=== PATIENT | female | born 1965 | race Caucasian/White ===

== ENCOUNTER → 2021-04-04 08:51 | Outpatient (CLI) | payer BC, OTHER, SELFPAY ==
--- NOTE | 2021-04-04 | DI.CT.S_ITS ---
PROCEDURE: CT ABDOMEN W CON INDICATIONS: LEFT UPPER QUADRANT PAIN TECHNIQUE: After the administration of intravenous and p.o. contrast, axial sections acquired from the diaphragm to the iliac crests. Coronal and sagittal reformats were performed. For radiation dose reduction, the following was used: automated exposure control, adjustment of mA and/or kV according to patient size. COMPARISON: None. FINDINGS: Image quality: Excellent. Lung bases: Unremarkable. Heart: No significant findings. Liver: Tiny hypodensity too small to characterize at the liver dome. Otherwise normal attenuation. Gallbladder: Normal Biliary ducts: Nondilated. Pancreas: Normal. Spleen: Normal size and homogeneous enhancement. Adrenal Glands: No masses. Kidneys and Ureters: Minimal left caliectasis and bilateral extrarenal pelves. No intrarenal calcifications or perinephric inflammation. Visible ureters are nondilated. Stomach and Bowel: Increased quantity of solid colonic stool throughout the visible colon. Distal colon and rectum were not included on this field of view. Stomach and visible small bowel loops appear normal. Peritoneum: No generalized inflammation, free fluid, or free air. Ventral Wall: No hernia. Abdominal Nodes: No retroperitoneal or mesenteric adenopathy by size criteria. Vessels: Aorta and inferior vena cava are normal in size. Bones: Unremarkable. IMPRESSION: 1. No acute process or suspicious finding to explain left upper quadrant pain. 2. Minimal left intrarenal caliectasis without hydroureter is probably physiologic due to hydration state. 3. Increased quantity of solid stool without visualization of a distal obstructing lesion. Obstipation may contribute to left upper quadrant pain. If this may be clinically relevant, further evaluation with CT of the pelvis is recommended. Dictated by: Modesta Pryor M.D. on 04/04/2021 at 12:06 Approved by: Modesta Pryor M.D. on 04/04/2021 at 12:13
== END ==
PROVIDERS: PCP Student in an Organized Health Care Education/Training Program; Referring Provider Student in an Organized Health Care Education/Training Program; Visit Provider Student in an Organized Health Care Education/Training Program
DX: R10.12 Left upper quadrant pain (principal)
CPT/HCPCS: 74160; Q9967

== ENCOUNTER 2022-03-31 08:16 | Day surgery (SDC) | payer BC, OTHER, SELFPAY ==
[2022-03-31] MEDS: FLEETS ENEMA 1 EACH PR (08:33)
[2022-03-31 08:46] VITALS: BP 139/82; PULSE 80; RESP 16; TEMP 36.7; O2SAT 99; BMI 22.1
[2022-03-31] MEDS: LACTATED RINGERS 1,000 ML 84 ML IV (08:52)
--- NOTE | 2022-03-31 09:17 | PM.HP.1 ---
History of Present Illness History of Present Illness Date Patient Seen: 03/31/22 Time Patient Seen: 09:17 Chief complaint: SDC Narrative: Personal history of unknown histology colon polyps Patient History Family & Social History Social History: household members spouse Tobacco & Substance use: Smoking Status Never smoker alcohol intake frequency a few times a week Substance Use Type does not use Meds Home Medications and Allergies Home Medications Medication Instructions Recorded Confirmed Type amlodipine 2.5 mg tablet 2.5 mg PO DAILY 03/31/22 03/31/22 History ferrous sulfate 27 mg iron tablet 27 mg PO 2XW 03/31/22 03/31/22 History lisinopril 20 1 tab PO DAILY 03/31/22 03/31/22 History mg-hydrochlorothiazide 12.5 mg tablet Allergies Allergy/AdvReac Type Severity Reaction Status Date / Time Latex, Natural Rubber AdvReac Severe Hives Verified 03/31/22 08:46 Sulfa (Sulfonamide AdvReac Severe Joint Pain Verified 03/31/22 08:46 Antibiotics) Review of Systems Review of Systems ROS: Yes All systems reviewed with the patient and are negative except as otherwise documented Exam Vital Signs (past 8 hours): - 03/31/22 08:46 Temperature 98.0 F Pulse Rate 80 Respiratory Rate 16 Blood Pressure 139/82 Pulse Oximetry 99 Oxygen Delivery Method Room Air Oxygen Delivery Method Room Air Const General: cooperative HENMT Head: normal to inspection Eyes General: appearance normal, both eyes and all related structures Neck Neck: normal visual inspection Chest Chest: normal inspection of the chest Resp Effort & Inspection: normal respiratory effort Cardio Rate: regular rate GI Inspection: normal to inspection Skin General: no rashes or lesions noted Neuro General: patient alert and patient awake Extrem General: normal to inspection and no pedal edema Psych Appearance: grossly normal Assessment & Plan Assessment & Plan narrative: 56-year-old female with a personal history of unknown histology polyps. Last exam was some 8 years ago. Colonoscopy is pursued today. Time Spent With Patient Critical Care time: I spent a total of [] minutes of critical care time on this patient's care today; this time is exclusive of procedural time.
--- NOTE | 2022-03-31 09:18 | PM.PREOP ---
Pre-operative Note Interval Note History & Physical reviewed/Exam performed by Physician: Yes Changes to H&P: No ASA Class (for procedural sedation): II
--- NOTE | 2022-03-31 09:45 | PM.OP.COLON ---
Operative Date/Time/Diagnoses Date of procedure: 03/31/22 Time of procedure: 09:45 Pre-op diagnosis: Personal history of unknown histology colon polyp Post-op diagnosis: same Procedure & Clinicians Study performed: Colonoscopy Same procedure as scheduled: Yes Indications: Personal history of unknown histology colon polyp Surgeon: Jaylan Gonzalez Procedure Notes SCOAP/Timeout: Done Procedure in detail: After the risks and benefits were explained, written and verbal informed consent was obtained. The patient was brought into the procedure room and placed into the left lateral decubitus position. Please see anesthesia notes for sedation details. Digital rectal examination was accomplished. The scope was introduced into the patient and advanced under direct visualization to the cecum as identified by the appendiceal orifice and ileocecal valve. The scope was slowly withdrawn to carefully examine the mucosa for any defects or lesions. Comprehensive imaging was accomplished throughout the rectum including the dentate line. The colon was decompressed, the scope was then removed from the patient who tolerated the procedure well. Pediatric colonoscope Bowel prep adequate after copious irrigation and suction Scope withdrawal time: 9 minutes Sedation minutes: 20 Specimen(s): none sent Complications: none Impression: No significant polyps mass lesions or inflammatory features identified throughout. Grade 1 internal hemorrhoids were noted. Endoscopic diagnosis 1. Grade 1 hemorrhoids 2. Otherwise visually unremarkable colonoscopy Post-procedure Plan for aftercare: Repeat colonoscopy 10 years; sooner should symptoms warrant an earlier exam. Disposition: PACU
[2022-03-31 09:48] VITALS: BP 94/52; PULSE 77; RESP 12; TEMP 36.3; O2SAT 97
[2022-03-31 09:53] VITALS: BP 95/55; PULSE 78; RESP 11; TEMP 36.2; O2SAT 98
[2022-03-31 09:58] VITALS: BP 105/56; PULSE 80; RESP 17; TEMP 36.2; O2SAT 100
[2022-03-31 10:07] VITALS: BP 115/67; PULSE 68; RESP 14; TEMP 36.2; O2SAT 100
== END 2022-03-31 10:15 | disposition home or self-care (01) ==
PROVIDERS: PCP Student in an Organized Health Care Education/Training Program; Referring Provider Internal Medicine Gastroenterology; Visit Provider Internal Medicine Gastroenterology
PROC: 0DJD8ZZ Inspection of Lower Intestinal Tract, Via Natural or Artificial Opening Endoscopic (ICD-10-PCS; CPT 45378; principal; 2022-03-31 09:30)
DX: Z12.11 Encounter for screening for malignant neoplasm of colon (principal); Z86.010 Personal history of colon polyps; K64.0 First degree hemorrhoids
CPT/HCPCS: 45378; J2704